=== PATIENT | female | born 1980 | race Caucasian/White ===

== ENCOUNTER 2016-11-27 10:48 | Emergency (ER) | payer SELFPAY ==
[~2016-11-27] VITALS: Ht 167.6 cm; Wt 70.0 kg
[2016-11-27 10:50] VITALS: BP 118/72; PULSE 83; RESP 16; TEMP 98; O2SAT 100
[2016-11-27] MEDS ORDERED: oxyCODONE/ACETAMINOPHEN 5 MG/325 MG TAB PO ONE (11:15)
[2016-11-27] MEDS ORDERED: IBUP-232 PO (11:31)
[2016-11-27] MEDS ORDERED: PERC5TAB12 PO (11:31)
--- NOTE | 2016-11-27 11:31 | PD ---
HPI Chief Complaint: Injury Time Seen by Provider: 10:56 Travel History International Travel<30 days: No Contact w/Intl Traveler<30days: No Traveled to known affect area: No History of Present Illness HPI Patient is a 36 year old female who presents to ER with c/o of left foot pain. Patient reports that 2 days ago, she dropped a chair onto her left foot. Reports pain to her left foot. Reports no hip or ankle pain. No other c/o at this time. PFSH Past Medical History COPD: Yes ("active airway disease") ?: Not Past Surgical History Hysterectomy: Yes Social History Alcohol Use: No Tobacco Use: No Substance Use: No Allergies-Medications (Allergen,Severity, Reaction): Coded Allergies: Augmentin (Verified Allergy, Unknown, 11/27/16) Penicillin (Verified Allergy, Unknown, 11/27/16) Zithromax (Verified Allergy, Unknown, 11/27/16) Reported Meds & Prescriptions Reported Meds & Active Scripts Active Ibuprofen 600 Mg Tab 600 Mg PO Q6H PRN Percocet (Oxycodone-Acetaminophen) 5-325 mg Tab 1 Tab PO Q6H PRN Review of Systems General / Constitutional: No: Fever Eyes: No: Visual changes HENT: No: Headaches Cardiovascular: No: Chest Pain or Discomfort Respiratory: No: Shortness of Breath Gastrointestinal: No: Abdominal Pain Genitourinary: No: Dysuria Musculoskeletal: Positive: Pain (left foot pain) Skin: No Rash Neurologic: No: Weakness Psychiatric: No: Depression Endocrine: No: Polydipsia Hematologic/Lymphatic: No: Easy Bruising Physical Exam Narrative GENERAL: Well-nourished, well-developed patient. SKIN: Focused skin assessment warm/dry. HEAD: Normocephalic. EYES: No scleral icterus. No injection or drainage. NECK: Supple, trachea midline. No JVD or lymphadenopathy. CARDIOVASCULAR: Regular rate and rhythm without murmurs, gallops, or rubs. RESPIRATORY: Breath sounds equal bilaterally. No accessory muscle use. GASTROINTESTINAL: Abdomen soft, non-tender, nondistended. MUSCULOSKELETAL: No cyanosis. RLE: normal exam, pulses intact, neurovascularly intact LLE: patient with normal ROM to left hip/left knee and left ankle, patient with pain with rom to digits #1-3, no obvious fx, no open fx, pain with generalized pain to left foot BACK: Nontender without obvious deformity. No CVA tenderness. Data Data Last Documented VS Vital Signs Date Time Temp Pulse Resp B/P Pulse Ox O2 Delivery O2 Flow Rate FiO2 11/27/16 10:57 78 18 98 Room Air 11/27/16 10:50 98.0 118/72 Orders Foot, Complete ([id number]) (11/27/16 ) Oxycodone-Acetamin 5-325 Mg (Percocet (11/27/16 11:15) MDM Medical Decision Making Medical Screen Exam Complete: Yes Emergency Medical Condition: Yes Interpretation(s) Vital Signs Date Time Temp Pulse Resp B/P Pulse Ox O2 Delivery O2 Flow Rate FiO2 11/27/16 10:57 78 18 98 Room Air 11/27/16 10:50 98.0 83 16 118/72 100 Differential Diagnosis Differential includes left foot fracture versus sprain Narrative Course 36-year-old female who presents to emergency room complaints of pain to her left foot. Patient injured her foot 2 days ago by dropping a chair onto her left foot, x-ray of the foot ordered. xray of foot with no acute fx patient will follow up with pcp and will return to ER as needed Diagnosis Primary Impression: Sprain of foot, left Qualified Code: S93.602A - Sprain of foot, left, initial encounter Patient Instructions: General Instructions, Narcotic given in the ED Additional Instructions: Please follow up with orthopedic surgeon as well as your primary care doctor Return to ER as needed Please do not drive or operate heavy machinery while taking narcotic pain medications Please bring a copy of your x-ray to your doctor's office for follow up on all studies Med/Other Pt SpecificInfo: Prescription(s) given Scripts Ibuprofen 600 Mg [id number] Mg PO Q6H PRN (Pain/Inflammation) #40 TAB Ref 0 Prov:Silke Flynn DO 11/27/16 Oxycodone-Acetaminophen (Percocet)5-325 mg Tab1 Tab PO Q6H PRN (PAIN) #10 TAB Ref 0 Prov:Silke Flynn DO 11/27/16 Disposition: 01 DISCHARGE HOME Condition: Stable Silke Flynn DO Nov 27, 2016 11:31
--- NOTE | 2016-11-27 12:05 | RADRPT ---
EXAM DATE/TIME: 11/27/2016 11:16 [facility] COMPARISON: No previous studies available for comparison. INDICATIONS : Left foot pain with swelling. MEDICAL HISTORY : None. SURGICAL HISTORY : None. ENCOUNTER: Initial ACUITY: 1 day PAIN SCORE: 9/10 LOCATION: Left anterior Foot FINDINGS: Three view examination of the left foot demonstrates no soft tissue swelling, dislocation, or fractur e. The tarsal bones appear intact. The interphalangeal and metatarsophalangeal joints are intact. The calcaneus is intact. Bony mineralization is normal. CONCLUSION: Unremarkable examination of the left foot. Travis Morin MD on November 27, 2016 at 12:03 Board Certified Radiologist. This report was verified electronically.
== END 2016-11-27 12:56 | disposition home or self-care (01) ==
LOC: NEPD 10:48
DX: S93.602A Unspecified sprain of left foot, initial encounter (principal); W22.8XXA Striking against or struck by other objects, initial encounter
CPT/HCPCS: 73630; 99283; E0113